=== PATIENT | female | born 1965 | race African-American/Black ===

== ENCOUNTER 2017-05-25 09:41 | Emergency (ER) | payer BC ==
[~2017-05-25] VITALS: Ht 157.5 cm; Wt 48.0 kg
[2017-05-25] MEDS ORDERED: ALBU18HF2 IH (09:53)
[2017-05-25] MEDS ORDERED: BACL20TA PO (09:53)
[2017-05-25] MEDS ORDERED: IBUP-2030 PO (09:53)
[2017-05-25] MEDS ORDERED: IBUPROFEN 600MG TABLET PO ONE (13:00)
[2017-05-25 14:38] VITALS: BP 124/77
== END 2017-05-25 14:39 | disposition home or self-care (01) ==
LOC: ER 10:19
DX: M25.512 Pain in left shoulder (principal); I10 Essential (primary) hypertension; J45.909 Unspecified asthma, uncomplicated
CPT/HCPCS: 73030; 81025; 99284

== ENCOUNTER 2018-04-16 13:24 | Emergency (ER) | payer SELFPAY ==
[~2018-04-16] VITALS: Ht 157.5 cm; Wt 47.2 kg
[~2018-04-16 13:24] MED LIST: ALBU18HF2 IH; BACL20TA PO; IBUP-2030 PO
[2018-04-16 13:54] VITALS: BP 138/86
== END 2018-04-16 16:37 | disposition home or self-care (01) ==
LOC: ER 16:34
DX: M54.12 Radiculopathy, cervical region (principal); M77.9 Enthesopathy, unspecified; I10 Essential (primary) hypertension; Z90.710 Acquired absence of both cervix and uterus; Z98.51 Tubal ligation status; Z79.899 Other long term (current) drug therapy; Z87.39 Personal history of other diseases of the musculoskeletal system and connective tissue
CPT/HCPCS: 99283